=== PATIENT | male | born 1990 | race African-American/Black ===

== ENCOUNTER 2017-07-02 11:19 | Emergency (ER) | payer OTHER ==
[2017-07-02 11:31] VITALS: BP 121/79; PULSE 85; TEMP 98; BMI 23.7
[2017-07-02] MEDS ORDERED: KETOROLAC TROMETHAMINE 30 MG/1 ML VIAL IM ONE (12:54)
[2017-07-02] MEDS ORDERED: KETOROLAC TROMETHAMINE 30 MG/1 ML VIAL ONE (13:01)
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
== END 2017-07-02 14:34 | disposition home or self-care (01) ==
LOC: JER 11:19
PROC: 3E0233Z Introduction of Anti-inflammatory into Muscle, Percutaneous Approach (ICD-10-PCS; principal; 2017-07-02)
DX: S02.40FD Zygomatic fracture, left side, subsequent encounter for fracture with routine healing (principal); S06.9X9D Unspecified intracranial injury with loss of consciousness of unspecified duration, subsequent encounter; S02.40DD Maxillary fracture, left side, subsequent encounter for fracture with routine healing; Y04.2XXD Assault by strike against or bumped into by another person, subsequent encounter
CPT/HCPCS: 73030-TC-LT-FY; 73562-TC-RT-FY; 96372; 99282-25

== ENCOUNTER 2023-06-24 18:12 | Emergency (ER) | payer OTHER ==
[2023-06-24 18:56] VITALS: RESP 19; BMI 23.7
[2023-06-24] MEDS ORDERED: ACETAMINOPHEN INJECTION 100 ML IVPB ONE (19:45)
[2023-06-24] MEDS: ACETAMINOPHEN 1000 MG/100 ML BAG IVPB ONE (19:56)
[2023-06-24 20:02] LABS: BASO % 0.3 % (0-2.0); HEMATOCRIT 41.3 % (35.4-49); HEMOGLOBIN 13.7 GM/dL (11.7-16.9); LYMPH % 9.8 % (8-40); MCH 29.8 pg (25.7-33.7); MCHC 33.1 g/dl (32.0-35.9); MEAN CELL VOLUME 90.1 fl (80-96); MEAN PLT VOLUME 7.5 fl (7.5-11.1); MONO % 6.2 % (3.8-10.2); NEUT % 83.7 % (42.8-82.8); PLATELET COUNT 204 10^3/uL (134-434); RBC 4.59 M/mm3 (4.00-5.60); RDW 15.1 % (11.9-15.9); WHITE BLOOD COUNT 10.6 K/mm3 (4.0-10.0)
[2023-06-24] MEDS ORDERED: levETIRAcetam 500 MG/5 ML INJECTION VIAL IVPB ONE (20:09)
[2023-06-24] MEDS: levETIRAcetam 500 MG/5 ML INJECTION VIAL IVPB ONE (20:13)
[2023-06-24 20:14] LABS: POTASSIUM 4.2 mmol/L (3.5-5.1)
[2023-06-24 20:16] LABS: ALBUMIN 3.6 g/dl (3.4-5.0); BLOOD UREA NITROGEN 11.8 mg/dL (7-18); CALCIUM 9.1 mg/dL (8.5-10.1); MAGNESIUM 2.1 mg/dL (1.8-2.4)
[2023-06-24 20:19] LABS: CREATININE 0.8 mg/dL (0.55-1.3)
[2023-06-24 20:21] LABS: BILIRUBIN,TOTAL 0.3 mg/dL (0.2-1); TOT PROT 6.9 g/dl (6.4-8.2)
[2023-06-24 23:33] VITALS: BP 136/66; PULSE 82; TEMP 99.6
== END 2023-06-24 23:08 | disposition home or self-care (01) ==
LOC: JER 18:12
PROC: 3E030GC Introduction of Other Therapeutic Substance into Peripheral Vein, Open Approach (ICD-10-PCS; principal; 2023-06-24)
PROC: 3E030GC Introduction of Other Therapeutic Substance into Peripheral Vein, Open Approach (ICD-10-PCS; 2023-06-24)
DX: G40.909 Epilepsy, unspecified, not intractable, without status epilepticus (principal); M79.10 Myalgia, unspecified site; Z91.148 Patient's other noncompliance with medication regimen for other reason; Z87.820 Personal history of traumatic brain injury
CPT/HCPCS: 36415; 70450-TC; 71045-TC-FY; 72125-TC; 72170-TC-FY; 80053; 80177; 82962; 83735; 85025; 93005; 93010; 99285-25; J0131